=== PATIENT | male | born 1945 | race Caucasian/White ===

== ENCOUNTER 2017-10-01 08:55 | Emergency (ER) | payer MEDICARE, OTHER ==
[2017-10-01] MEDS ORDERED: METOCLOPRAMIDE 5 MG/ML 2 ML VIAL IVP STA (09:10)
[2017-10-01] MEDS ORDERED: GLUCAGON 1 MG/ML VIAL IVP STA (09:10)
[2017-10-01] MEDS ORDERED: diphenhydrAMINE 50 MG/ML 1 ML VIAL IVP STA (09:12)
--- NOTE | 2017-10-01 09:21 | ED ---
Skin/Abscess/FB HPI - General Chief complaint: Skin/Abscess/Foreign Body Stated complaint: FB in Throat Time Seen by Provider: 10/01/17 09:01 Source: patient, RN notes reviewed, old records reviewed Mode of arrival: ambulatory Limitations: no limitations - History of Present Illness Initial comments: This patient's a 72-year-old male chief complaint of feeling a foreign body within his throat. Patient reports that he swallowed a antibiotic tablet from his recent dental procedure., Amoxicillin. Patient reports that this occurred 11 PM last night. He states that he's been continued to feel there is something stuck with syrup. He's been trying to drink water and eat but it's continues to feel some is soft. He is able to swallow and breathe without difficulty. Denies any other complaints. - Related Data Allergies Allergy/AdvReac Type Severity Reaction Status Date / Time No Known Allergies Allergy Verified 10/01/17 09:00 Review of Systems ROS Statement: Those systems with pertinent positive or pertinent negative responses have been documented in the HPI. ROS Other: All systems not noted in ROS Statement are negative. Past Medical History Past Medical History: Coronary Artery Disease (CAD), Diabetes Mellitus, Hyperlipidemia, Hypertension, Prostate Disorder History of Any Multi-Drug Resistant Organisms: None Reported Past Surgical History: Coronary Bypass/CABG Past Psychological History: No Psychological Hx Reported Smoking Status: Former smoker Past Alcohol Use History: None Reported Past Drug Use History: None Reported General Exam - General Exam Comments Initial Comments: Patient is a 72-year-old male. Alert and oriented. No acute distress. Limitations: no limitations General appearance: alert, in no apparent distress Head exam: Present: atraumatic, normocephalic, normal inspection Eye exam: Present: normal appearance, PERRL, EOMI. Absent: scleral icterus, conjunctival injection, periorbital swelling ENT exam: Present: normal exam, mucous membranes moist Neck exam: Present: normal inspection Respiratory exam: Present: normal lung sounds bilaterally. Absent: respiratory distress, wheezes, rales, rhonchi, stridor Cardiovascular Exam: Present: regular rate, normal rhythm, normal heart sounds. Absent: systolic murmur, diastolic murmur, rubs, gallop, clicks GI/Abdominal exam: Present: soft, normal bowel sounds. Absent: distended, tenderness, guarding, rebound, rigid Extremities exam: Present: normal inspection, full ROM, normal capillary refill. Absent: tenderness, pedal edema, joint swelling, calf tenderness Back exam: Present: normal inspection Neurological exam: Present: alert, oriented X3, CN II-XII intact Psychiatric exam: Present: normal affect, normal mood Skin exam: Present: warm, dry, intact, normal color. Absent: rash Course Vital Signs 10/01/17 08:57 Temperature 97.5 F L Pulse Rate 69 Respiratory 20 Rate Blood Pressure 186/102 O2 Sat by Pulse 99 Oximetry - Reevaluation(s) Reevaluation #1: 10/01/17 10:29 Is a pelvic with the warm water he was able to feel the pill down. He states that when he went to officially swallowed it seemed like it was still continued to come back up. He has been able to swallow water and tolerated food and breathing without difficulty emergency department. Medical Decision Making - Medical Decision Making 72-year-old male with a feeling of a pill stuck in his throat. It's amoxicillin it's been there since 11:00 PM. He is on antibiotics for recent dental procedure. At this time Patient was given warm water did feel he had some improvement of the passage of the pill. I discussed this will likely resolve. Soft tissue x-ray of the neck was negative for any acute process. Patient has been able to tolerate fluids and breathing without difficulty emergency department. I discussed that the pill will dissolve over time and was given otherwise warm water. Patient agrees treatment plan will comply. We' ll give him a referral for endoscopy if symptoms are continuing persist. Patient agrees treatment plan will comply. Return parameters were discussed. - Radiology Data Radiology results: report reviewed No radiopaque foreign body evident. Disposition Clinical Impression: Pill dysphagia Disposition: HOME SELF-CARE Condition: Good Instructions: Dysphagia (ED) Additional Instructions: Patient has a continue drinking warm water. In drink as normal. Continue your antibiotics. Return to the emergency department if any alarming signs or symptoms occur. Over time he still should dissolve on its own with continue drinking hot water. Is patient prescribed a controlled substance at d/c from ED?: No When asked, does pt state using other controlled substances?: No If prescribed controlled substance>3 days was MAPS reviewed?: No If opioid is for acute pain is fill amount 7 days or less?: No If Rx opioid, was Start Talking consent form obtained?: No Referrals: None,Stated [Primary Care Provider] - 1-2 days Piedad Barrios MD [STAFF PHYSICIAN] - 1-2 days Time of Disposition: 10:30
--- NOTE | 2017-10-01 09:43 | XR ---
Soft tissue neck HISTORY: Swallowed pill, feels like stuck in throat, foreign body 2 views of the neck Degenerative disc changes are noted in the visualized cervical spine. The airway is patent. Epiglotti s does not appear thickened. No radiopaque foreign body. Postop change status post median sternotomy noted incidentally. There are facet arthropathy changes in the cervical spine. IMPRESSION: No radiopaque foreign body evident.
[2017-10-01 10:44] VITALS: BP 172/88; PULSE 66; RESP 18; TEMP 98
== END 2017-10-01 10:42 | disposition home or self-care (01) ==
LOC: EC 08:55
DX: R13.19 Other dysphagia (principal); Z87.891 Personal history of nicotine dependence; Z95.1 Presence of aortocoronary bypass graft
CPT/HCPCS: 70360; 99284